=== PATIENT | female | born 1980 | race Two or more races ===

== ENCOUNTER 2020-10-01 22:06 | Emergency (ER) | payer MEDICAID, OTHER ==
[~2020-10-01] VITALS: Ht 157.5 cm; Wt 88.0 kg
[2020-10-01 22:25] VITALS: BP 131/79
--- NOTE | 2020-10-01 22:28 | NUR ---
TO LOBBY A/W BED AMBULATORY
--- NOTE | 2020-10-01 23:30 | NUR ---
SEEN AND EXAMINED BY HIGINIOD WITH ORDERS
[2020-10-01] MEDS ORDERED: cephALEXin 500 MG CAP PO ONE (23:40)
[2020-10-01] MEDS ORDERED: IBUPROFEN 800 MG TAB PO ONE (23:40)
--- NOTE | 2020-10-01 23:50 | NUR ---
MEDICATED PER [facility] ORDER, TOLERATED WELL.
[2020-10-02 00:50] LABS: APPEARANCE,URINE CLOUDY (CLEAR); BILIRUBIN,URINE NEGATIVE (NEGATIVE); BLOOD, URINE 2+ (NEGATIVE); COLOR,URINE YELLOW (YELLOW); LEUKOCYTE ESTERASE ,URINE 2+ (NEGATIVE); NITRITE, URINE NEGATIVE (NEGATIVE); UGLUCOSE NEGATIVE (NEGATIVE)
[2020-10-02 00:56] LABS: RBC,URINE 0-5 /HPF (0-5); WBC,URINE TOO MANY TO COUNT /HPF (0-5)
[2020-10-02 01:20] VITALS: BP 119/80
--- NOTE | 2020-10-02 01:20 | NUR ---
Patient discharged with v/s stable. Written and verbal after care instructions given and explained. Patient alert, oriented and verbalized understanding of instructions. Ambulatory with steady gait. All questions addressed prior to discharge. ID band removed. Patient advised to follow up with PMD. Rx of KEFLEX, NAPROXEN, PYRIDUIM given. Patient educated on indication of medication including possible reaction and side effects. Opportunity to ask questions provided and answered.
[2020-10-02] MEDS ORDERED: CEPH-588 PO (01:24)
[2020-10-02] MEDS ORDERED: NAPR-1003 PO (01:24)
[2020-10-02] MEDS ORDERED: PHEN-1877 PO (01:24)
== END 2020-10-02 01:20 | disposition home or self-care (01) ==
LOC: MED 22:06
DX: O26.899 Other specified pregnancy related conditions, unspecified trimester (principal); R30.0 Dysuria
CPT/HCPCS: 81001; 81025; 87086; 99283